=== PATIENT | male | born 1960 | race Caucasian/White ===

== ENCOUNTER 2020-06-26 07:28 | Outpatient (REF) | payer OTHER, SELFPAY ==
[2020-07-01 16:37] LABS: Testosterone, Free 54.4 pg/mL (35.0-155.0); Testosterone, Total 258 ng/dL (250-1100)
== END 2020-06-26 07:29 | disposition home or self-care (01) ==
LOC: HO.MANLDS 07:28
PROVIDERS: PCP Internal Medicine; Visit Provider Physician Assistant
DX: N52.9 Male erectile dysfunction, unspecified (principal)
CPT/HCPCS: 36415; 84402; 84403

== ENCOUNTER 2020-07-19 07:35 | Outpatient (REF) | payer OTHER, SELFPAY ==
[2020-07-23 12:01] LABS: Testosterone, Free 65.1 pg/mL (35.0-155.0); Testosterone, Total 354 ng/dL (250-1100)
== END 2020-07-19 07:36 | disposition home or self-care (01) ==
LOC: HO.MANLDS 07:35
PROVIDERS: PCP Internal Medicine; Visit Provider Physician Assistant
DX: E29.1 Testicular hypofunction (principal)
CPT/HCPCS: 36415; 84402; 84403

== ENCOUNTER → 2021-07-19 08:02 | Outpatient (REF) | payer OTHER, SELFPAY ==
--- NOTE | 2021-07-19 08:14 | CA_ITS ---
Transthoracic Echocardiogram Patient (Last, First, Middle): Bill Diallo Richard Gender: Male Date of : 1960 Age: 61 Procedure Date: 07/19/2021 Procedure Type: Transthoracic Echocardiogram Location: OP Height: 167.64 cm Weight: 90.72 kg BSA: 2.00 m2 Heart Rate: bpm BP: 120 / 80 mmHg Call Center Trainer: NITHIN Referring MD: Anu CALVERT Clinical Trial Specialist: Diego Veronica MD Symptoms: R07.89 CHEST PAIN Study Quality: Good ECG Rhythm: Sinus Conclusions: - 1. Low normal LV systolic function with mild LVH with impaired relaxation filling pattern 2. Normal cardiac valvular Doppler 3. Normal RV systolic pressure 4. No pericardial effusion Findings Left Ventricle Normal left ventricular cavity size. There is mildly increased left ventricular wall thickness. The left ventricular systolic function is low normal. The visually estimated ejection fraction is between 50-55%. Spectral Doppler is indicative of an impaired relaxation filling pattern. E/E prime ratio is <8, consistent with normal filling pressures. measured global longitudinal endocardial strain is -13.4%, this is reduced Right Ventricle Normal right ventricular cavity size and systolic function. Atria The left atrium is normal in size. There is no evidence of interatrial shunt. The right atrium is normal in size. Aortic Valve Normal aortic valve structure and function. There is no aortic valve stenosis. There is no aortic valve regurgitation. Mitral Valve Normal mitral valve structure and function. There is trace mitral valve regurgitation. There is no mitral valve stenosis. Pulmonic Valve The pulmonic valve was not well visualized. Tricuspid Valve Likely normal tricuspid valve structure and function. There is trace tricuspid valve regurgitation. The right ventricular systolic pressure is normal. The right ventricular systolic pressure is 19 mmHg. Normal right atrial pressure. There is no evidence of pulmonary hypertension. Great Vessels All visible segments of the aorta are normal in size. The pulmonary artery was not well visualized. Venous The inferior vena cava is normal in size and collapses greater than 50% with inspiration. Pericardium/Pleural There is no evidence of pericardial effusion. Prior Study Comparison No prior study available for comparison. Measurements 2D Linear Measurements IVSd: 1.23 0.6-0.9/0.6-1.0 cm LVIDd: 4.67 3.9-5.3/4.2-5.9 cm LVIDd Index: 2.34 2.4-3.2/2.2-3.1 cm/m2 LVIDs: 3.31 2.0-3.6 cm LVPWd: 1.34 0.7-1.1 cm LA Diam: 3.60 2.7-3.8/3.0-4.0 cm LAIDs Index: 1.80 1.5-2.3 cm/m2 LV Mass: 288.76 67-162/88-224 g LV Mass Index: 144.38 43-95/49-115 g/m2 LVOT Diam: 2.30 3.0+(-)1.3 cm 2D Systolic Function EF 4C: 55.50 >55% EF 2C: 43.30 >55% EF BiP: 50.50 >55% Mitral Valve MV Pk E: 0.50 MV PK A: 0.59 MV Decel Time: 271.00 E/A: 0.80 E'Lateral: 6.31 E'Medial: 7.07 E/E' Med: 7.10 E/E' Lat: 8.00 PHT: 79.00 MVA PHT: 2.78 Decel [place]: 1.85 Aortic Valve AoV Pk Epifanio: 0.98 AoV Pk Grad: 4.00 LVOT LVOT Pk Epifanio: 0.87 LVOT Mn Epifanio: 0.59 LVOT VTI: 0.17 LVOT Pk Grad: 3.00 LVOT Mn Grad: 2.00 LVOT Diam: 2.30 LVOT Area: 4.15 Diastolic Function MV Pk E: 0.50 MV Pk A: 0.59 E/A: 0.80 E'Medial: 7.07 E/E' Med: 7.10 E' Laterial: 6.31 E/E' Lat: 8.00 Right Ventricle TAPSE (mm): 1.99 TVS' Epifanio: 12.50 Tricuspid Valve TR Pk Epifanio: 2.02 TR Pk Grad: 16.00 RA Press: 3.00 RVSP: 19.00 Great Vessels Aorta Sinus of Valsalva: 3.43 2.0-3.5 cm Ao Asc: 3.20 2.1-3.4 cm Updated in Other Vendor System with Status of Final Diego Veronica MD electronically signed on 07/20/2021 5:34:19 PM with status of Final
--- NOTE | 2021-07-19 08:15 | CA_ITS ---
Acquisition Time: 2021-07-19 09:40:55 Total Exercise Time: 00:09:48 Test Indications: Chest Pain Medications: LOSARTAN MELOXICAM TRAZADONE Protocol: SHAD Max HR: 142 BPM 88% of Pred: 160 BPM Max BP: 146/082 mmHG Max Work Load: 11.3 METS Exercise stress test with exercise 9 min 48 sec acheiving 88% MPHR, without anginal symptoms, without arrythmia, with normotensive response to exercise, without EKG changes meeting criteria for ischemia. Test reviewed with Dr Veronica. Referred By: Anu Silva Overread By: JOSE PERSAUD
== END ==
LOC: HO.CARD 08:02
PROVIDERS: Visit Provider Physician Assistant
DX: R07.89 Other chest pain (principal)
CPT/HCPCS: 93017; 93306

== ENCOUNTER 2022-07-15 11:47 | Outpatient (REF) | payer OTHER, SELFPAY ==
[2022-07-15 14:45] LABS: Prostate Specific Antigen 17.04 ng/mL (<0.05-4.0)
== END 2022-07-15 11:48 | disposition home or self-care (01) ==
LOC: HO.MANLDS 11:47
PROVIDERS: Visit Provider Physician Assistant
DX: Z12.5 Encounter for screening for malignant neoplasm of prostate (principal); N40.0 Benign prostatic hyperplasia without lower urinary tract symptoms
CPT/HCPCS: 36415; 84153

== ENCOUNTER 2022-08-09 11:52 | Outpatient (REF) | payer OTHER, SELFPAY ==
[2022-08-09 12:54] LABS: MANUAL DIFF FLAG NO
[2022-08-09 13:17] LABS: Basophils Percent Auto 0.6 % (0-2); Eosinophils Absolute Auto 0.1 X10*3/uL (0.0-0.4); Eosinophils Percent Auto 1.5 % (0-4); Hematocrit 43.8 % (42.0-52.0); Hemoglobin 14.5 g/dl (14.0-18.0); Imm Gran Abs Auto 0.01 X10*3/uL (0.00-0.03); Imm Gran Pct Auto 0.2 % (0.0-0.4); Lymphocytes Absolute Auto 1.1 X10*3/uL (1.2-4.9); Lymphocytes Percent Auto 20.7 % (20-40); Mean Corpuscular HGB Conc 33.1 g/dl (31.0-36.0); Mean Corpuscular Hemoglobin 30.1 pg (27.0-33.0); Mean Corpuscular Volume 90.9 fL (80.0-98.0); Mean Platelet Volume 10.2 fL (9.4-12.4); Monocytes Absolute Auto 0.3 X10*3/uL (0.1-1.2); Neutrophils Absolute Auto 3.7 x10*3/uL (2.0-8.3); Platelet Count 261 X10*3/uL (160-400); Red Blood Count 4.82 X10*6/uL (4.60-5.80); Red Cell Distribution Width 13.2 % (11.0-16.0); White Blood Count 5.2 X10*3/uL (4.8-10.8)
[2022-08-09 13:52] LABS: Alanine Aminotransferase 19 U/L (0-40); Albumin Level 4.2 g/dL (3.5-5.0); Alkaline Phosphatase 69 U/L (39-117); Anion Gap 11 (12-20); Aspartate Amino Transferase 25 U/L (5-37); Bilirubin Total 0.5 mg/dL (0.0-1.0); Blood Urea Nitrogen 20 mg/dL (9-16); Calcium 9.1 mg/dL (8.4-10.2); Carbon Dioxide 25 mmol/L (22-29); Chloride 106 mmol/L (96-108); Estimated Glomerular Filt Rate > 60; Glucose Random 100 mg/dL (60-115); Potassium 4.2 mmol/L (3.3-5.1); Sodium 138 mmol/L (135-145); Total Protein 6.6 g/dL (6.5-8.0)
[2022-08-09 14:23] LABS: Folate 16.6 ng/mL (> or = 4.0); Vitamin B12 585 pg/mL (200-900)
[2022-08-09 14:37] LABS: Syphilis Screen Nonreactive (Nonreactive)
[2022-08-09 14:54] LABS: CT PCR NOT DETECTED (Not Detect.); NG PCR NOT DETECTED (Not Detect.)
[2022-08-12 09:04] LABS: HBsAGNum1 0.35 S/CO (0.00-0.99); HIV AB/AG Nonreactive (Nonreactive); HIV Num 1 0.07 S/CO (0.00-0.99); Hepatitis B Surface Antigen Negative (Negative); ~Hepatitis C Antibody Nonreactive (Nonreactive)
[2022-08-15 13:33] LABS: Testosterone, Total 549 ng/dL (250-1100)
== END 2022-08-09 11:53 | disposition home or self-care (01) ==
LOC: HO.MANLDS 11:52
PROVIDERS: Visit Provider Internal Medicine
DX: R53.83 Other fatigue (principal); Z20.9 Contact with and (suspected) exposure to unspecified communicable disease; Z20.2 Contact with and (suspected) exposure to infections with a predominantly sexual mode of transmission
CPT/HCPCS: 0353U; 36415; 80053; 82607; 82746; 84403; 85025; 86780; 86803; 87340; 87389

== ENCOUNTER 2024-08-25 08:02 | Outpatient (REF) | payer OTHER, SELFPAY ==
--- OUTSIDE RECORDS SUMMARY | 2024-08-25 08:05 | XMS_ITS | Clinical Summary ---
Author Organization [facility] Address [address] [place] [id number] Phone Care Team Providers Care Arterial Embalmer Name Role Phone Naty July PA-C Primary Care Provider [phone] Allergies Active Allergy Reactions Criticality Noted Date Comments Lisinopril 09/18/2022 Medications tamsulosin (FLOMAX) 0.4 mg Cap tamsulosin 0.4 mg capsule TAKE 1 CAPSULE BY MOUTH AT BEDTIME Active losartan (COZAAR) 50 MG tablet Take 1 tablet by mouth every morning. Active Social History Tobacco Use Types Packs/Day Years Used Date Smoking Tobacco: Never Smokeless Tobacco: Never Tobacco Cessation:Counseling Given: Not Answered Education Answer Date Recorded Are you interested in more education? Not on karyn e 08/09/2022 Are you concerned about learning? Not on file 08/09/2022 No 08/09/2022 No 08/09/2022 Digital Access Answer Date Recorded No 09/07/2022 No 09/07/2022 Reliable internet access at home? Not on file 09/07/2022 Device with a working camera? Not on file Sex and Gender Information Value Date Recorded Sex Assigned at Not on file Legal Sex Male 12:21 PM EDT Gender Identity Not on file Sexual Orientation Not on file Last Filed Vital Signs Vital Sign Reading Time Taken Comments Blood Pressure 135/92 09/18/2022 10:22 AM EDT Pulse 75 09/18/2022 10:22 AM EDT Temperature 36.6 ??C (97.9 ??F) 09/18/2022 10:22 AM E DT Respiratory Rate - - Oxygen Saturation 97% 09/18/2022 10:22 AM EDT Inhaled Oxygen Concentration - - Weight 79.8 kg (176 lb) 09/18/2022 10:22 AM EDT with boots Height 167.6 cm (5' 6 ) 09/18/2022 10:22 AM EDT Body Mass Index 28.41 09/18/2022 10:22 AM EDT Plan of Treatment Upcoming Encounters Date Type Department Care Team ([facility] st Contact Info) Description 04/13/2099 Procedure Pass OR Admitting Dept - Virtual Department [address] [place] [address] Health Maintenance Due Date Last Done Comments CREATININE LEVEL 1960 POTASSIUM LEVEL 1960 DEPRESSION SCREENING 1973 HEPATITIS B SCREENING 1979 HIV ONE-TIME SCREENING (18-6 5 YEARS) 1979 SCREENING FOR DIABETES 1996 COLOGUARD 2006 COLONOSCOPY 2006 COLORECTAL CANCER SCREENING 2006 FIT TEST 2006 FOBT 2006 SIGMOIDOSCOPY 2006 VIRTUAL COLONOSCOPY 2006 PNEUMOCOCCAL VACCINES (50+ y ears) (1 of 1 - PCV) 2011 ZOSTER VACCINES (1 of 2) 2011 INFLUENZA VACCINE (#1) 2023 COVID-19 VACCINE (2 - 2023-2 5 season) 2023 08/09/2020 LIPID PANEL 04/30/2024 04/30/2019 Adult Td,Tdap Booster 03/23/2025 03/23/2015 RSV VACCINE (1 - 1-dose 75+ series) 2036 HEPATITIS C SCREENING Completed 04/16/2018 SMOKING STATUS SCREENING (On ce After 26 Yrs) Completed 09/18/2022 HEPATITIS A VACCINES Aged Out No long er eligible based on patient's age to complete this topic HEPATITIS B VACCINES Aged Out No long er eligible based on patient's age to complete this topic HIB VACCINES Aged Out No longer eligi ble based on patient's age to complete this topic MENINGOCOCCAL VACCINES (ACWY) Aged Out No longer eligible based on patient's age to complete this topic Medical Devices Not on file [place] [place] [address] HMO HMO HMO HMO O O Care Teams Arterial Embalmer Relationship Specialty Start Date End Date July, VENANCIO PCP - General Unknown Provider Specialty 09/16/18 Additional Source Comments The information contained in this document represents components of the legal health record. It is not the complete legal health record.[facility]
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
[2024-08-25 14:11] LABS: Estimated Average Glucose 143 mg/dL; Hemoglobin A1C 192.3624 umol/L; Hemoglobin A1c % 6.6 % (<6.0); Total Hemoglobin (HGBA1C) 3964.9584 umol/L
[2024-08-25 14:21] LABS: Cholesterol 177 mg/dL (<200); HDL Cholesterol 36 mg/dL (>40); LDL Cholesterol Calculated 102 mg/dL (<100); Triglycerides 197 mg/dL (<150)
== END 2024-08-25 08:03 | disposition home or self-care (01) ==
LOC: HO.MANLDS 08:02
PROVIDERS: Visit Provider Physician Assistant
DX: I10 Essential (primary) hypertension (principal); Z13.1 Encounter for screening for diabetes mellitus
CPT/HCPCS: 36415; 80061; 83036